=== PATIENT | male | born 1935 ===

== ENCOUNTER 2019-02-08 02:41 | Observation (INO) | payer MEDICARE, OTHER ==
[2019-02-08] VITALS (12 sets, daily range): BP systolic 105–167; BP diastolic 60–101
[~2019-02-08] VITALS: Ht 180.3 cm; Wt 78.9 kg
[~2019-02-08 02:41] MED LIST: ASPI81TA94 PO; ATOR20TA22 PO; FAMOTIDINE 20 MG TAB PO ONE; FINA5TAB67 PO; GENTAMICIN(*) 80 MG/2 ML VIAL 160 MG in NS(*) 0.9% 100 ML BAG 100 ML IVPB ONE; LEVO50TA86 PO; LIDOCAINE/SOD BICARB 8.4% SYR ID ONE; METF-450 PO; MIDAZOLAM 2 MG/2 ML VIAL IVP PRN; NORMOSOL R SOLN(*) 1000 ML BAG 1,000 ML IV PRN; TAMS0.4C70 PO; cefTRIAXone(*) 1 GM VIAL 1 GM in NS(*) 0.9% 100 ML ADDVANT BAG 100 ML IVPB ONE
[2019-02-08] MEDS ORDERED: GENTAMICIN(*) 80 MG/2 ML VIAL 160 MG in NS(*) 0.9% 100 ML BAG 100 ML IVPB ONE (07:45)
[2019-02-08] MEDS ORDERED: LIDOCAINE/SOD BICARB 8.4% SYR ID ONE (07:45)
[2019-02-08] MEDS ORDERED: NORMOSOL R SOLN(*) 1000 ML BAG 1,000 ML IV PRN (07:45)
[2019-02-08] MEDS ORDERED: FAMOTIDINE 20 MG TAB PO ONE (07:45)
[2019-02-08] MEDS ORDERED: MIDAZOLAM 2 MG/2 ML VIAL IVP PRN (07:45)
[2019-02-08] MEDS ORDERED: cefTRIAXone(*) 1 GM VIAL 1 GM in NS(*) 0.9% 100 ML ADDVANT BAG 100 ML IVPB ONE (07:45)
--- NOTE | 2019-02-08 08:00 | RADIOLOGY IMAGING REPORT ---
FACILITY: PATIENT NAME: Vince Nolasco : 1935 MR: [id number] V: [id number] EXAM DATE: ORDERING PHYSICIAN: BRITTANI PANCHAL TECHNOLOGIST: Location: [facility] Patient: Vince Nolasco : 1935 Visit/Account:[id number] Date of Sevice: 02/04/2019 KUB SINGLE VIEW ABDOMEN HISTORY: Preop, renal stones COMPARISON: None. FINDINGS: Nonobstructive bowel pattern. No acute bony finding. Stool overlies the renal parenchyma bilaterally. Density is seen over the hepatic flexure possibly within upper pole calyx measure 4 mm. Multiple den sities are seen on the left adjacent to the lateral portion of the 12th rib. The largest of which carlos sures 3 mm. IMPRESSION: Possible bilateral nephrolithiasis. Report Dictated By: Aaron Dickerson MD at 02/08/2019 7:54 AM Report E-Signed By: Aaron Dickerson MD at 02/08/2019 7:56 AM WSN:[id number]
[2019-02-08] MEDS ORDERED: DEXAMETHASONE SOD PHOS 10MG/ML ONE (09:42)
[2019-02-08] MEDS ORDERED: PROPOFOL EMUL(*) 10MG/ML 20 ML 20 ML ONE (09:42)
[2019-02-08] MEDS ORDERED: ONDANSETRON 4 MG/2 ML VIAL ONE (09:42)
[2019-02-08] MEDS ORDERED: IOPAMIDOL-200 50 ML VIAL IS ONE (10:27)
--- NOTE | 2019-02-08 12:02 | RADIOLOGY IMAGING REPORT ---
FACILITY: [facility] PATIENT NAME: Vince Nolasco : 1935 MR: [id number] V: [id number] EXAM DATE: ORDERING PHYSICIAN: BRITTANI PANCHAL TECHNOLOGIST: [place] [facility] [place] Vince Nolasco : 1935 Visit/Account:[id number] Date of Sevice: 02/08/2019 C-ARM FLUORO 1 HR HISTORY: URETERO-PYELOGRAM Intraoperative C-arm films. FINDINGS: Retrograde studies of both elbow ureteral systems with opacification of both ureters and upper collec ting systems. No obvious filling defect noted. IMPRESSION: 1. Intraoperative films as described. Please refer to the procedural note for complete elucidation. Fluoroscopic time of 11 seconds. AK 8.4mGy Report Dictated By: Roni Lara MD at 02/08/2019 11:54 AM Report E-Signed By: Roni Lara MD at 02/08/2019 11:57 AM WSN:[email or web address]
[2019-02-08] MEDS ORDERED: ACETAMIN/CODEINE #3 300-30 MG PO PRN (14:20)
[2019-02-08] MEDS ORDERED: LR(*) 1000 ML BAG 1,000 ML IV PRN (14:20)
[2019-02-08] MEDS ORDERED: FLUSH 10 ML SYR IVP PRN (14:20)
[2019-02-08] MEDS ORDERED: ZOLPIDEM TARTRATE 5 MG TAB PO PRN (14:20)
[2019-02-08] MEDS ORDERED: ONDANSETRON 4 MG/2 ML VIAL IVP PRN (14:20)
--- NOTE | 2019-02-08 14:55 | Hospitalist Consultation ---
History of Present Illness Requesting Physician Dr. Abrams Reason for Consult Medical Management Chief Complaint s/p lithotripsy History of Present Illness He was admitted s/p lithotripsy. It is reported the surgery went well and without complication. History Problems: (1) Type 2 diabetes mellitus Status: Chronic (2) Hyperlipidemia Status: Chronic (3) Hypothyroidism Status: Chronic Home Meds Reported Medications Tamsulosin Hcl (TAMSULOSIN HCL) 0.4 Mg Cap.er.24h, 0.4 MG PO, CAP 01/14/19 Metformin Hcl (METFORMIN HCL) 500 Mg Tablet, 1 TAB PO QDAY, TAB 01/14/19 Levothyroxine Sodium (LEVOTHYROXINE SODIUM) 50 Mcg Tablet, 25 MCG PO QDAY, TAB 01/14/19 Finasteride (FINASTERIDE) 5 Mg Tablet, 5 MG PO QDAY 01/14/19 Atorvastatin Calcium (LIPITOR) 20 Mg Tablet, 1 TAB PO QDAY, TAB 01/14/19 Aspirin (ASPIRIN) 81 Mg Tab.chew, 81 MG PO QDAY, TAB.CHEW 01/14/19 Allergies: Coded Allergies: No Known Drug Allergies (Unverified , 01/14/19) Hx Smoking: No Smoking Status: Never Smoker Exposure to Second Hand Smoke?: Yes (from parents) Caffeine Intake: Coffee Caffeine/Cups Per Day: 3/day Hx Alcohol Use: Yes Alcohol Used: Beer, Liquor Hx Substance Use Disorder: No Social Drug Use: Never History of IV Drug Use: No Review of Systems All Systems Reviewed/Normal: Yes, Except as Noted Exam Vital Signs Vital Signs Date Time Temp Pulse Resp B/P (MAP) Pulse Ox O2 Delivery O2 Flow Rate FiO2 02/08/19 13:39 97.5 72 16 142/81 (101) 94 Nasal Cannula 1.5 General Appearance: Alert, Awake, No Acute Distress, Afebrile Neuro: No Gross deficits Cardiovascular: Regular Rate and Rhythm Respiratory: No Respiratory Distress, Clear to Auscultation Psych: Alert & Oriented X3, Appropriate Mood & Affect Assessment and Plan Problems: (1) Type 2 diabetes mellitus Status: Chronic Assessment & Plan: He is on chronic treatment with daily Metformin. He will be placed on BID blood glucose checks and resume Metformin tomorrow. (2) Hypothyroidism Status: Chronic Assessment & Plan: He is on chronic treatment with Levothyroxine. (3) Hyperlipidemia Status: Chronic Assessment & Plan: He is on chronic treatment with Atorvastatin. Continue. Venous Thromboembolism Antithrombotics Is Pt On Any Antithrombotics?: No MARIA DE JESUS MCKEONP Feb 08, 2019 14:55
[2019-02-08] MEDS: FAMOTIDINE 20 MG TAB PO SCH (20:24)
[2019-02-08] MEDS: NEOMYCIN/POLYMYX/BACITR OINT 1 PACKET TP SCH (20:25)
[2019-02-08] MEDS: GENTAMICIN/NS 80 MG/100 ML PB 100 ML IVPB SCH (20:25)
[2019-02-08] MEDS: DOCUSATE SODIUM 100 MG CAP PO SCH (20:25)
[2019-02-08] MEDS: BENZALKONIUM CL 1:750 TOP SOLN TP SCH (20:25)
[2019-02-09 03:43] VITALS: BP 132/82
--- NOTE | 2019-02-09 05:09 | OPERATIVE REPORT 1 ---
EVENT DATE: February 08, 2019 SURGEON: Kee Abrams MD ANESTHESIOLOGIST: Kee Suazo MD ANESTHESIA: General. PREOPERATIVE DIAGNOSES 1. Gross hematuria, etiology? 2. Bilateral renal lithiasis. POSTOPERATIVE DIAGNOSES 1. Gross hematuria, etiology? 2. Bilateral renal lithiasis. PROCEDURE PERFORMED 1. Cystourethroscopy. 2. Bilateral ureteral pyelograms. 3. Hydrodistention of the bladder. 4. Right extracorporeal shockwave lithotripsy of one stone. 5. Left extracorporeal shockwave lithotripsy of one stone. DESCRIPTION OF PROCEDURE Under general anesthetic, the patient was prepped and draped in the extended lithotomy position. The 21 panendoscope was admitted through the urethra into the bladder. The urethra was normal. The prostate showed trilobar hyperplasia with obstruction, minimal inflammation, small median lobe. Bladder showed 4+ trabeculation. Trigone and ureteral orifices were normal. No bloody efflux from either orifice. No other demonstrable bladder lesions. Bladder filled under gravity; flow was measured to a total of approximately 800 mL. On drainage of the bladder, there was a small amount of terminal gross hematuria. The right ureteral pyelograms were obtained, and then the left ureteral pyelograms. The ureteral pyelograms appeared to be grossly within normal limits, in my opinion. Radiologist's interpretation is pending. The external stents were passed up the collecting systems bilaterally. There was no restriction, either ascending or descending. They were secured with a 16 coude tip Matute; contrast was attached. Patient was transferred to the stone treatment unit. After localization, two to three calculi collected in the inferior pole of the right kidney were visualized on fluoroscopy and treated with a total of 500 shocks, progressing from low to high kV fairly slowly. The stones appeared to be disintegrating after approximately 500 shocks. X-ray confirmed accurate location and treatment. Patient was positioned for extracorporeal shockwave lithotripsy of the stone in the inferior pole area of the left kidney. After localization, one stone in the inferior pole area was treated with a total of 2000 shocks, again progressing from low to high kV fairly slowly. The external catheter and Matute were removed. Patient tolerated the procedure satisfactorily and returned to the recovery room in satisfactory condition. This is an 83-year-old white male complaining of gross hematuria when initially seen in December 2018. He had gross hematuria, and that was visible on examination of the urine. Patient had been on Flomax and Proscar for several years. CT-IVP was performed and showed bilateral renal lithiasis. No other demonstrable lesions. The patient's urine cleared on antibiotic therapy. He had a preliminary urine culture that showed no growth, and he was on antibiotics at the time. Options were discussed with the patient pretreatment. He was agreeable to lower tract studies, ureteral pyelograms as indicated, and probable treatment of his stones. That has been accomplished; see operative note for details. Patient will be ready for discharge home if doing well in the a.m., to force fluids, 12 glasses of water per day. Activities are as tolerated. He is to strain all his urine. He is sent home with strainers. He is to continue his usual medications. Patient will be discharged home on Cipro, Pyridium, Pepcid, Motrin, and Tylenol No. 3 therapy. MTDD
[2019-02-09] MEDS ORDERED: LEVOTHYROXINE SOD 0.025 MG TAB PO SCH (06:00)
[2019-02-09 08:06] VITALS: BP 106/90
--- NOTE | 2019-02-09 08:20 | Hospitalist Progress Note ---
Subjective Progress Notes Subjective He is s/p lithotripsy. Patient is doing well post-operatively. He would like to go home today. Patient Complains of: Cardiovascular: No: Chest Pain Respiratory: No: Shortness of Breath Physical Exam Vital Signs Date Time Temp Pulse Resp B/P (MAP) Pulse Ox O2 Delivery O2 Flow Rate FiO2 02/09/19 08:06 97.5 62 12 106/90 (95) 96 Room Air 02/08/19 14:10 2.0 Intake and Output 02/09/19 07:00 Intake Total 2456 ml Output Total 1850 ml Balance 606 ml Intake Oral 556 ml IV Total 1700 ml Other 200 ml Output Urine Total 1850 ml # Voids 7 General Appearance: Alert, Awake, No Acute Distress, Afebrile Neuro: No Gross deficits Cardiovascular: Regular Rate and Rhythm Respiratory: No Respiratory Distress, Clear to Auscultation GI: Soft and Non-Tender Psych: Alert & Oriented X3, Appropriate Mood & Affect Assessment and Plan Problems: (1) Type 2 diabetes mellitus Status: Chronic Assessment & Plan: He is on chronic treatment with daily Metformin. He was placed on BID blood glucose checks and resume Metformin today. (2) Hypothyroidism Status: Chronic Assessment & Plan: He is on chronic treatment with Levothyroxine. (3) Hyperlipidemia Status: Chronic Assessment & Plan: He is on chronic treatment with Atorvastatin. Continue. Exam Sepsis Risk: No Definite Risk MARIA DE JESUS MCKEON Feb 09, 2019 08:20
[2019-02-09] MEDS: GENTAMICIN/NS 80 MG/100 ML PB 100 ML IVPB SCH (08:25)
[2019-02-09] MEDS ORDERED: ATORVASTATIN 10 MG TAB PO SCH (09:00)
[2019-02-09] MEDS ORDERED: cefTRIAXone 1 GM VIAL IVP SCH (09:00)
[2019-02-09] MEDS ORDERED: metFORMIN HCL 500 MG TAB PO SCH (09:00)
[2019-02-09] MEDS: NEOMYCIN/POLYMYX/BACITR OINT 1 PACKET TP SCH (09:08)
[2019-02-09] MEDS: FAMOTIDINE 20 MG TAB PO SCH (09:08)
[2019-02-09] MEDS: DOCUSATE SODIUM 100 MG CAP PO SCH (09:08)
[2019-02-09] MEDS: BENZALKONIUM CL 1:750 TOP SOLN TP SCH (09:11)
[2019-02-09 09:27] VITALS: Ht 180.3 cm; Wt 78.9 kg
[2019-02-09] MEDS ORDERED: ACET-3017 PO (10:07)
[2019-02-09] MEDS ORDERED: FAMO20TA28 PO (10:08)
[2019-02-09] MEDS ORDERED: IBUP-1671 PO (10:09)
[2019-02-09] MEDS ORDERED: CIPR-344 PO (10:10)
== END 2019-02-09 08:53 | disposition home health service (06) ==
LOC: OR 02:41 → MED 13:20
DX: R31.0 Gross hematuria (principal); N20.0 Calculus of kidney; I10 Essential (primary) hypertension; E11.9 Type 2 diabetes mellitus without complications
CPT/HCPCS: 36416; 50590; 74018; 76000; 82948; A9270; C1758; C1769; C1894; G0378; J0696; J1100; J1580; J2405; J2704; J7050; J7120; Q9966